=== PATIENT | female | born 1965 | race Caucasian/White ===

== ENCOUNTER → 2020-10-23 | Outpatient (CLI) | payer OTHER ==
[2020-10-26 06:10] LABS: QUANTIFERON MITOGEN VALUE >10.00 IU/mL (.); QUANTIFERON TB2 AG VALUE 0.03 IU/mL (.); QUANTIFERON-TB GOLD PLUS Negative (Negative)
== END ==
LOC: MAMO 10-16 10:00
PROVIDERS: Nurse Practitioner Family
DX: Z11.1 Encounter for screening for respiratory tuberculosis (principal); R92.8 Other abnormal and inconclusive findings on diagnostic imaging of breast
CPT/HCPCS: 36415; 77066; G0279

== ENCOUNTER → 2020-11-18 | Outpatient (CLI) | payer OTHER | LOC: KOH-I 14:37 | DX: R30.0 Dysuria (principal); R31.9 Hematuria, unspecified; R10.9 Unspecified abdominal pain | CPT/HCPCS: 74176 ==

== ENCOUNTER → 2020-12-19 | Outpatient (CLI) | payer OTHER | LOC: EXRD 13:32 | DX: I99.9 Unspecified disorder of circulatory system (principal); M54.6 Pain in thoracic spine; M47.814 Spondylosis without myelopathy or radiculopathy, thoracic region | CPT/HCPCS: 72070; 93925 ==

== ENCOUNTER → 2021-01-16 | Outpatient (CLI) | payer OTHER | LOC: EXRD 09:30 | DX: M40.209 Unspecified kyphosis, site unspecified (principal); M51.9 Unspecified thoracic, thoracolumbar and lumbosacral intervertebral disc disorder; Z78.0 Asymptomatic menopausal state | CPT/HCPCS: 77080 ==

== ENCOUNTER → 2021-12-02 | Outpatient (CLI) | payer OTHER | LOC: MAMO 11-14 15:00 | DX: Z12.31 Encounter for screening mammogram for malignant neoplasm of breast (principal) | CPT/HCPCS: 77063; 77067 ==